=== PATIENT | female | born 1955 | race Asian ===

== ENCOUNTER → 2016-03-24 | Outpatient (CLI) | payer OTHER ==
--- NOTE | 2016-03-24 16:32 | DX ---
LEFT RIBS, 2 views History: New lump at sternoclavicular joint with the left clavicle Comparison: AP chest July 16, 2015 Findings: Alignment of the manubrial clavicular joints appear symmetric on the PA view. The medial le ft clavicular head and clavicle appear normal . Lungs clear. Heart normal. No mediastinal or hilar ad enopathy. Impression: No source for lump identified. Consider MRI or CT with IV contrast of the sternoclavicula r joints for further evaluation of the patient's lump.
== END ==
LOC: BMCIMAGING 14:13
PROVIDERS: ATTEND Internal Medicine
DX: R22.9 Localized swelling, mass and lump, unspecified (principal)

== ENCOUNTER → 2016-04-17 | Outpatient (CLI) | payer OTHER | LOC: FIMAGING 14:45 | PROVIDERS: ATTEND Internal Medicine | DX: R22.2 Localized swelling, mass and lump, trunk (principal) ==

== ENCOUNTER → 2016-09-10 | Outpatient (CLI) | payer OTHER | LOC: FIMAGING 13:39 | PROVIDERS: ATTEND Pain Medicine Interventional Pain Medicine | DX: M50.221 Other cervical disc displacement at C4-C5 level (principal); M51.86 Other intervertebral disc disorders, lumbar region ==

== ENCOUNTER 2017-05-01 15:49 | Emergency (ER) | payer OTHER ==
--- NOTE | 2017-05-01 16:47 | EDPHY ---
H & P Stated Complaint: epigastric/back pain, MORTON Time Seen by Provider: 05/01/17 16:10 - Personal History Current Tetanus/Diphtheria Vaccine: Unsure Current Tetanus Diphtheria and Acellular Pertussis (TDAP): Unsure - Medical/Surgical History Hx Asthma: No Hx Chronic Respiratory Disease: No Hx Diabetes: No Hx Cardiac Disease: No Hx Renal Disease: No Hx Cirrhosis: No Hx Alcoholism: No Hx HIV/AIDS: No Hx Splenectomy or Spleen Trauma: No Other PMH: MIGRAINES, CHRONIC NECK PAIN, RECEIVES BOTOX FOR CHRONIC PAIN. CHRONIC NAUSEA herniated disc. osteoporosis - Social History Smoking Status: Never smoked Constitutional: Initial Vital Signs Temperature (C) 36.5 C 05/01/17 15:58 Heart Rate 63 05/01/17 15:58 Respiratory Rate 16 05/01/17 15:58 Blood Pressure 135/63 H 05/01/17 15:58 O2 Sat (%) 100 05/01/17 15:58 O2 Delivery Mode Room Air Allergies/Adverse Reactions: dexamethasone [From Decadron] Allergy (Mild, Verified 05/01/17 15:57) dexamethasone sod phosphate [From Decadron] Allergy (Mild, Verified 05/01/17 15: 57) Home Medications: Medication Instructions Recorded Cyanocobalamin [Vitamin B12 (OTC)] 1,000 mcg PO DAILY 08/17/14 Levothyroxine [Synthroid 100 mcg 100 mcg PO DAILY 08/17/14 (RX)] Magnesium 135 mg PO HS 08/17/14 Progesterone 100mg Caps 1 cap PO HS 08/17/14 Medical Decision Making - Diagnostics Imaging Results: Imaging Impressions Abdomen Ultrasound 05/01/17 16:49 Impression: Contracted gallbladder. However, no ultrasound evidence for acute cholecystitis. Findings and recommendations discussed with Fabien Estrada MD at 1746 hour, 05/01/2017. Final report concurs with initial preliminary interpretation. Imaging: Discussed imaging studies w/ call or contact centre team leader Radiologist ED Course/Re-evaluation: CHIEF COMPLAINT: Abdominal pain HISTORY OF PRESENT ILLNESS: The patient is a 61 y/o female with a history of hypothyroidism and chronic pain complaining of abdominal pain and back pain for the last 7 days. She initially noticed epigastric abdominal pain quickly followed by "deep" in the same plane with her abdominal pain. No aggravating or alleviating factors. She now has associated nausea, but no diarrhea, fever, vomiting, cough, dyspnea. Pain feels similar to prior 6-year episode of abdominal pain due to pancreatic foreign body, which was removed via laparotomy and identified as a needle. They never determined where this needle came from, but thought it could have been an acupuncture needle. REVIEW OF SYSTEMS: A 10 point review of systems was performed and is negative with the exception of the elements mentioned in the history of present illness. PHYSICAL EXAM: HR, BP, O2 Sat, RR. Temp noted General Appearance: Alert, well hydrated, appropriate, and non-toxic appearing. Head: Atraumatic without scalp tenderness or obvious injury Eyes: Pupils equal, round, reactive to light and accommodation, EOMI, no trauma , no injection. Nose: Atraumatic, no rhinorrhea, clear. Throat: Mucus membranes moist. Neck: Supple, non-tender, no lymphadenopathy. Respiratory: No retractions, no distress, no wheezes, and no accessory muscle use. Lungs are clear to auscultation bilaterally. Cardiovascular: Regular rate and rhythm, no murmurs, rubs, or gallops. Good capillary refill all extremities. Gastrointestinal: Abdomen is soft, epigastric and RUQ tenderness, non-distended , no masses, no rebound, no guarding, no peritoneal signs. Musculoskeletal: Normal active ROM of all extremities, atraumatic. Neurological: Alert, appropriate, and interactive. The patient has non-focal cranial nerves, motor, sensory, and cerebellar exam. Skin: No rashes, good turgor, no nodules on palpation. PAST MEDICAL HISTORY: Hypothyroidism, migraines, chronic pain PAST SURGICAL HISTORY: Exploratory laparotomy of pancreas to remove foreign body (needle) in July [address] Means SOCIAL HISTORY: Nonsmoker. . Employed. Prior medical records reviewed including ED visit 12/03/15 for migraine. DIAGNOSTICS/PROCEDURES/CRITICAL CARE TIME: RUQ US: contracted gallbladder, no evidence of cholecystitis DIFFERENTIAL DIAGNOSIS: The differential diagnosis for the patient's abdominal pain included but was not limited to ovarian cyst, pelvic inflammatory disease, ovarian torsion, urinary tract infection, ectopic , cholecystitis, and appendicitis. MEDICAL DECISION MAKING: This is a 61 y/o female who presents with a one-week history of upper abdominal pain, back pain, and nausea. She is generally [id number] with mild RUQ and epigastric tenderness. She is afebrile and hemodynamically stable. Location of pain could indicate gallbladder etiology. Plan for IV, labs, gallbladder US, and symptomatic management. 4mg IV Zofran and 1L IV NS ordered. Reassessed patient and discussed work up. Her nausea has been well-controlled with Zofran and she is feeling improved. We have poor IV access and the patient does not want us to continue attempting to get a better line that would allow for contrast during a CT. Given that her labs are completely normal, including normal lipase and LFTs, and her abdomen is benign on reassessment, I do not suspect acute surgical abdomen and do not think she requires a CT at this time. She agrees and would like to go home. Discussed strict return precautions and follow up instructions, which she agrees to. - Data Points Laboratory Results: Laboratory Results 05/01/17 17:15 05/01/17 17:15 18 05/01/17 17:15 17:15 WBC 4.10 10^3/uL 10^3/uL (3.80-9.50) RBC 4.52 10^6/uL 10^6/uL (4.18-5.33) Hgb 13.8 g/dL g/dL (12.6-16.3) Hct 41.3 % % (38.0-47.0) MCV 91.4 fL fL (81.5-99.8) MCH 30.5 pg pg (27.9-34.1) MCHC 33.4 g/dL g/dL (32.4-36.7) RDW 12.3 % % (11.5-15.2) Plt Count 228 10^3/uL 10^3/uL (150-400) MPV 11.1 fL fL (8.7-11.7) Neut % (Auto) 61.9 % % (39.3-74.2) Lymph % (Auto) 27.1 % % (15.0-45.0) [place] % (Auto) 7.1 % % (4.5-13.0) Eos % (Auto) 2.4 % % (0.6-7.6) Baso % (Auto) 0.5 % % (0.3-1.7) Nucleat RBC Rel Count 0.0 % % (0.0-0.2) Absolute Neuts (auto) 2.54 10^3/uL 10^3/uL (1.70-6.50) Absolute Lymphs (auto) 1.11 10^3/uL 10^3/uL (1.00-3.00) Absolute Monos (auto) 0.29 10^3/uL L 10^3/uL (0.30-0.80) Absolute Eos (auto) 0.10 10^3/uL 10^3/uL (0.03-0.40) Absolute Basos (auto) 0.02 10^3/uL 10^3/uL (0.02-0.10) Absolute Nucleated RBC 0.00 10^3/uL 10^3/uL (0-0.01) Immature Gran % 1.0 % % (0.0-1.1) Immature Gran # 0.04 10^3/uL 10^3/uL (0.00-0.10) Sodium 140 mEq/L mEq/L (135-145) Potassium 3.8 mEq/L mEq/L (3.5-5.2) Chloride 105 mEq/L mEq/L (97-110) Carbon Dioxide 22 mEq/l mEq/l (22-31) Anion Gap 13 mEq/L mEq/L (8-16) BUN 16 mg/dL mg/dL (7-23) Creatinine 0.8 mg/dL mg/dL (0.6-1.0) Estimated GFR > 60 Glucose 83 mg/dL mg/dL (70-100) Calcium 9.6 mg/dL mg/dL (8.5-10.4) Total Bilirubin 0.3 mg/dL mg/dL (0.1-1.4) Conjugated Bilirubin 0.2 mg/dL mg/dL (0.0-0.5) Unconjugated Bilirubin 0.1 mg/dL mg/dL (0.0-1.1) AST 26 IU/L IU/L (14-46) ALT 31 IU/L IU/L (9-52) Alkaline Phosphatase 114 IU/L IU/L (38-126) Total Protein 7.3 g/dL g/dL (6.3-8.2) Albumin 4.5 g/dL g/dL (3.5-5.0) Lipase 123 IU/L IU/L (23-300) Medications Given: Discontinued Medications Ondansetron HCl (Zofran Odt) 4 mg PO EDNOW ONE Stop: 05/01/17 17:50 Last Admin: 05/01/17 17:53 Dose: Not Given Departure - Departure Disposition: Home, Routine, Self-Care Clinical Impression: Abdominal pain Qualifiers: Abdominal location: upper abdomen, unspecified Qualified Code(s): R10.10 - Upper abdominal pain, unspecified Condition: Good Instructions: Acute Abdominal Pain (ED) Additional Instructions: Sometimes we are unable to diagnose an obvious cause of abdominal pain in the Emergency Department. Because more serious conditions can be difficult to diagnose early in the course of their presentation, we ask that you return to the Emergency Department in 8-12 hours for a recheck if you are still having pain. This is necessary to exclude the development of a more serious condition such as appendicitis or other intra-abdominal emergency. In the event your pain markedly increases before that time or you develop intractable vomiting or fever return to the Emergency Department immediately. Otherwise, please follow up with your primary care provider on Wednesday. Referrals: Jenny Downey MD [Primary Care Provider] - As per Instructions Report Scribed for: Fabien Estrada Report Scribed by: Elysia Gambino Date of Report: 05/01/17 Time of Report: 18:11
[2017-05-01] MEDS ORDERED: ONDANSETRON 4 MG/2 ML VIAL IVP ONE (16:49)
[2017-05-01] MEDS ORDERED: NS 1,000 ML IV ONE ×2 (16:49)
[2017-05-01] MEDS ORDERED: ONDANSETRON DISINTEGRATING 4 MG TAB PO ONE (17:49)
[2017-05-01 17:51] LABS: PLATELET COUNT 228 10^3/uL (150-400)
[2017-05-01 18:26] VITALS: BP 95/63; PULSE 67; RESP 18; TEMP 98.2; O2SAT 98
== END 2017-05-01 18:26 | disposition home or self-care (01) ==
DX: R10.10 Upper abdominal pain, unspecified (principal)
CPT/HCPCS: J2405

== ENCOUNTER 2017-10-31 05:50 | Emergency (ER) | payer OTHER ==
[2017-10-31] MEDS ORDERED: NS 1,000 ML IV ONE (05:59)
[2017-10-31] MEDS ORDERED: METOCLOPRAMIDE 10 MG/2 ML VIAL IVP ONE (06:22)
[2017-10-31] MEDS ORDERED: KETOROLAC 30 MG/1 ML SDV IVP ONE (06:22)
--- NOTE | 2017-10-31 06:23 | EDPHY ---
H & P Stated Complaint: migraines Source: Patient - Personal History Current Tetanus Diphtheria and Acellular Pertussis (TDAP): Unsure - Medical/Surgical History Hx Asthma: No Hx Chronic Respiratory Disease: No Hx Diabetes: No Hx Cardiac Disease: No Hx Renal Disease: No Hx Cirrhosis: No Hx Alcoholism: No Hx HIV/AIDS: No Hx Splenectomy or Spleen Trauma: No Other PMH: MIGRAINES, CHRONIC NECK PAIN, RECEIVES BOTOX FOR CHRONIC PAIN. CHRONIC NAUSEA herniated disc. osteoporosis - Social History Smoking Status: Never smoked Time Seen by Provider: 10/31/17 06:23 HPI/ROS: HPI CHIEF COMPLAINT: "I am having a migraine headache" HISTORY OF PRESENT ILLNESS: Patient is 62-year-old female, longstanding history of migraine headaches, followed by a headache specialist, she states is last evening she had 2 glasses of wine, at 4:00 a.m. She woke up with a gradual onset headache. Not thunderclap. Not worst headache of her life. She took migraine medications of which she cannot remember, also took Tylenol. It did not help with her pain. She presents emergency room with a posterior throbbing headache. Patient reports that this is always were her migraine is. It stems from bad neck pain. She states she has significant arthritis in her neck which gives her migraine headaches. She denies any chest pain, shortness of breath, denies fever. Denies stiff neck. Main complaint posterior headache. 12/08. Throbbing in nature. Very similar to previous migraines. Typically gets a migraine cocktail with improvement. Past Medical History: Migraine headaches, neck arthritis Past Surgical History: No recent surgery Social History: Occasional alcohol use. Denies illicit drugs. Denies tobacco. Family History: Noncontributory ROS REVIEW OF SYSTEMS: 10 Systems were reviewed and negative with the exception of the elements mentioned in the history of present illness. Exam Constitutional nontoxic-appearing, triage nursing summary reviewed, vital signs reviewed, awake/alert. Eyes normal conjunctivae and sclera, EOMI, PERRLA. HENT normal inspection, atraumatic, moist mucus membranes, no epistaxis, neck supple/ no meningismus, no raccoon eyes. Respiratory clear to auscultation bilaterally, normal breath sounds, no respiratory distress, no wheezing. Cardiovascular rate normal, regular rhythm, no murmur, no edema, distal pulses normal. Gastrointestinal soft, non-tender, no rebound, no guarding, normal bowel sounds, no distension, no pulsatile mass. Genitourinary no CVA tenderness. Musculoskeletal no midline vertebral tenderness, full range of motion, no calf swelling, no tenderness of extremities, no meningismus, good pulses, neurovascularly intact. Skin pink, warm, & dry, no rash, skin atraumatic. Neurologic patient is normal neurological exam, awake, alert and oriented x 3, AAOx3, moves all 4 extremities equally, motor intact, sensory intact, CN II-XII intact, normal cerebellar, normal vision, normal speech. Psychiatric normal mood/affect. Heme/Lymph/Immune no lymphadenopathy. Differential Diagnosis: Includes but is not limited to in a particular order, migraine headache, tension headache, cluster headache, intracranial bleed Medical Decision Making: Plan for this patient IV establishment, IV fluid bolus , migraine cocktail, CT scan head without contrast for headache, reason for CT scan and bad posterior headache. Re-evaluation: CT scan head without contrast negative for acute bleed. Called to me by Dr. Bernard 0700: Signed over to Dr. Estrada. Re-evaluate patient. (Robert Michael) Constitutional: Initial Vital Signs Temperature (C) 36.7 C 10/31/17 06:02 Heart Rate 74 10/31/17 06:02 Respiratory Rate 18 10/31/17 06:02 Blood Pressure 148/91 H 10/31/17 06:02 O2 Sat (%) 97 10/31/17 06:02 O2 Delivery Mode Room Air Allergies/Adverse Reactions: dexamethasone [From Decadron] Allergy (Mild, Verified 10/31/17 06:01) dexamethasone sod phosphate [From Decadron] Allergy (Mild, Verified 10/31/17 06: 01) Home Medications: Medication Instructions Recorded Levothyroxine [Synthroid 100 mcg 100 mcg PO DAILY 08/17/14 (RX)] Magnesium 135 mg PO HS 08/17/14 Progesterone 100mg Caps 1 cap PO HS 08/17/14 Medical Decision Making ED Course/Re-evaluation: 0800: Patient's migraine has improved. Normal neuro exam. Patient will be discharged home with standard migraine care and follow up instructions. Return precautions discussed. She is comfortable with this plan. (Fabien Estrada) - Data Points Laboratory Results: Laboratory Results 10/31/17 06:10 10/31/17 06:10 10/31/17 10/31/17 06:10 06:10 WBC 4.50 10^3/uL 10^3/uL (3.80-9.50) RBC 4.35 10^6/uL 10^6/uL (4.18-5.33) Hgb 13.1 g/dL g/dL (12.6-16.3) Hct 39.3 % % (38.0-47.0) MCV 90.3 fL fL (81.5-99.8) MCH 30.1 pg pg (27.9-34.1) MCHC 33.3 g/dL g/dL (32.4-36.7) RDW 12.5 % % (11.5-15.2) Plt Count 215 10^3/uL 10^3/uL (150-400) MPV 10.7 fL fL (8.7-11.7) Neut % (Auto) 64.0 % % (39.3-74.2) Lymph % (Auto) 25.8 % % (15.0-45.0) [place] % (Auto) 7.8 % % (4.5-13.0) Eos % (Auto) 2.0 % % (0.6-7.6) Baso % (Auto) 0.2 % L % (0.3-1.7) Nucleat RBC Rel Count 0.0 % % (0.0-0.2) Absolute Neuts (auto) 2.88 10^3/uL 10^3/uL (1.70-6.50) Absolute Lymphs (auto) 1.16 10^3/uL 10^3/uL (1.00-3.00) Absolute Monos (auto) 0.35 10^3/uL 10^3/uL (0.30-0.80) Absolute Eos (auto) 0.09 10^3/uL 10^3/uL (0.03-0.40) Absolute Basos (auto) 0.01 10^3/uL L 10^3/uL (0.02-0.10) Absolute Nucleated RBC 0.00 10^3/uL 10^3/uL (0-0.01) Immature Gran % 0.2 % % (0.0-1.1) Immature Gran # 0.01 10^3/uL 10^3/uL (0.00-0.10) Sodium 138 mEq/L mEq/L (135-145) Potassium 4.2 mEq/L mEq/L (3.3-5.0) Chloride 104 mEq/L mEq/L (97-110) Carbon Dioxide 26 mEq/l mEq/l (22-31) Anion Gap 8 mEq/L mEq/L (8-16) BUN 17 mg/dL mg/dL (7-23) Creatinine 0.7 mg/dL mg/dL (0.6-1.0) Estimated GFR > 60 Glucose 86 mg/dL mg/dL (70-100) Calcium 9.1 mg/dL mg/dL (8.5-10.4) Medications Given: Discontinued Medications Diphenhydramine HCl (Benadryl Injection) 50 mg IVP EDNOW ONE Stop: 10/31/17 06:23 Last Admin: 10/31/17 06:26 Dose: 50 mg Hydromorphone HCl (Dilaudid) 0.5 mg IVP EDNOW ONE Stop: 10/31/17 06:25 Last Admin: 10/31/17 06:31 Dose: 0.5 mg Sodium Chloride (Ns) 1,000 mls @ 0 mls/hr IV EDNOW ONE; Wide Open PRN Reason: Protocol Stop: 10/31/17 06:00 Last Admin: 10/31/17 06:13 Dose: 1,000 mls Ketorolac Tromethamine (Toradol) 30 mg IVP EDNOW ONE Stop: 10/31/17 06:23 Last Admin: 10/31/17 06:25 Dose: 30 mg Metoclopramide HCl (Reglan Injection) 10 mg IVP EDNOW ONE Stop: 10/31/17 06:23 Last Admin: 10/31/17 06:25 Dose: 10 mg Departure - Departure Disposition: Home, Routine, Self-Care Clinical Impression: Migraine headache Qualifiers: Migraine type: other Status migrainosus presence: without status migrainosus Intractability: intractable Qualified Code(s): G43.819 - Other migraine, intractable, without status migrainosus Condition: Good Instructions: Migraine Headache (ED), Acute Headache (ED) Additional Instructions: 1. Rest today. 2. Stay well-hydrated. 3. Return emergency room if there is worsening symptoms questions or concerns. 4. Please follow up with your doctor. Referrals: Jagdish Dorantes MD [Medical Doctor] - As per Instructions
[2017-10-31] MEDS ORDERED: HYDROmorphONE/DILAUDID 2 MG/ML INJ IVP ONE (06:24)
[2017-10-31 06:25] LABS: PLATELET COUNT 215 10^3/uL (150-400)
[2017-10-31] MEDS ORDERED: ONDANSETRON DISINTEGRATING 4 MG TAB PO ONE (08:16)
[2017-10-31 08:28] VITALS: BP 111/75
== END 2017-10-31 08:27 | disposition home or self-care (01) ==
DX: G43.819 Other migraine, intractable, without status migrainosus (principal); M54.2 Cervicalgia; G89.29 Other chronic pain; E86.9 Volume depletion, unspecified
CPT/HCPCS: 96374; J1170; J1200; J1885; J2765

== ENCOUNTER 2018-01-01 17:45 | Emergency (ER) | payer OTHER ==
[2018-01-01] MEDS ORDERED: KETOROLAC 30 MG/1 ML SDV IVP ONE (18:33)
[2018-01-01] MEDS ORDERED: NS 1,000 ML IV ONE (18:33)
[2018-01-01] MEDS ORDERED: METOCLOPRAMIDE 10 MG/2 ML VIAL IVP ONE (18:33)
--- NOTE | 2018-01-01 19:10 | EDPHY ---
H & P Stated Complaint: migraine morton/shingles Time Seen by Provider: 01/01/18 18:30 HPI/ROS: CHIEF COMPLAINT: Migraine HISTORY OF PRESENT ILLNESS: The patient is a 62y/o female with a history of migraines who arrives with her complaining of a migraine that began yesterday. She has a headache, nausea, and photophobia that feel exactly the same as prior migraines. She used Excedrin without relief. Her migraines are occurring almost weekly. She denies any symptoms today that are different from past episodes. No weakness, paresthesias, fever, or other complaints. She is here for symptom relief. REVIEW OF SYSTEMS: A comprehensive 10 system review of systems is otherwise negative aside from elements mentioned in the history of present illness and medical decision making. Past medical history: Migraines, chronic neck pain w/botox injections, chronic nausea, herniated disc, osteoporosis. Past surgical history: noncontributory Family history: Noncontributory Social history: at bedside. Lives in [place]. Adult Physical: General Appearance: Alert, no acute distress. Eyes: Pupils equal and round, no conjunctival injection, no discharge. ENT, Mouth: Mucous membranes are moist, no oropharyngeal erythema or edema. Neck: No lymphadenopathy, supple.No meningeal signs. Respiratory: Lungs are clear to auscultation; no wheezes, rales, or rhonchi. Cardiovascular: Regular rate and rhythm; no murmur, rub, or gallop. Gastrointestinal: Abdomen is soft and non tender, no masses or organomegaly. Skin: Warm and dry, small tiny scabs on left flank without vesicles, tenderness , erythema, or tenderness, normal color. Back: Nontender to palpation over the thoracolumbar spine. Neurological: Alert and oriented. Facial expressions symmetric, tongue midline , EOMI. Moving all four extremities easily and equally. Bilateral biceps, sod cutter , plantar and dorsiflexion 5/5. DTRs 2+ bilat knees. Sensation intact to LT all 4 extremities. Psychiatric: Normal affect. - Personal History Current Tetanus Diphtheria and Acellular Pertussis (TDAP): Unsure - Medical/Surgical History Hx Asthma: No Hx Chronic Respiratory Disease: No Hx Diabetes: No Hx Cardiac Disease: No Hx Renal Disease: No Hx Cirrhosis: No Hx Alcoholism: No Hx HIV/AIDS: No Hx Splenectomy or Spleen Trauma: No Other PMH: MIGRAINES, CHRONIC NECK PAIN, RECEIVES BOTOX FOR CHRONIC PAIN. CHRONIC NAUSEA herniated disc. osteoporosis - Social History Smoking Status: Never smoked Constitutional: Initial Vital Signs Temperature (C) 36.4 C 01/01/18 17:54 Heart Rate 55 L 01/01/18 17:54 Respiratory Rate 18 01/01/18 17:54 Blood Pressure 147/84 H 01/01/18 17:54 O2 Sat (%) 100 01/01/18 17:54 O2 Delivery Mode Room Air Allergies/Adverse Reactions: dexamethasone [From Decadron] Allergy (Mild, Verified 01/01/18 17:53) dexamethasone sod phosphate [From Decadron] Allergy (Mild, Verified 01/01/18 17: 53) Home Medications: Medication Instructions Recorded Levothyroxine [Synthroid 100 mcg 100 mcg PO DAILY 08/17/14 (RX)] Magnesium 135 mg PO HS 08/17/14 Progesterone 100mg Caps 1 cap PO HS 08/17/14 Ondansetron Odt [Zofran Odt 4 mg 4 mg PO Q4 PRN #10 tab 10/31/17 (RX)] Migraine Med 01/01/18 Medical Decision Making ED Course/Re-evaluation: Plan for IV and symptomatic management. 1L IV NS, 10mg IV Benadryl, 10mg IV Reglan, and 15mg IV Toradol ordered for migraine. Patient is feeling much better on reassessment and is ready for discharge home. Standard care and follow up instructions discussed. Return precautions given. Differential Diagnosis: DDX including but not limited to migraine, tension MORTON, cluster MORTON, temporal arteritis, ICH/SAH. - Data Points Medications Given: Discontinued Medications Diphenhydramine HCl (Benadryl Injection) 25 mg IVP EDNOW ONE Stop: 01/01/18 18:34 Last Admin: 01/01/18 18:48 Dose: 25 mg Sodium Chloride (Ns) 1,000 mls @ 0 mls/hr IV ONCE ONE; Wide Open PRN Reason: Protocol Stop: 01/01/18 18:34 Last Admin: 01/01/18 18:47 Dose: 1,000 mls Ketorolac Tromethamine (Toradol) 15 mg IVP EDNOW ONE Stop: 01/01/18 18:34 Last Admin: 01/01/18 18:48 Dose: 15 mg Metoclopramide HCl (Reglan Injection) 10 mg IVP EDNOW ONE Stop: 01/01/18 18:34 Last Admin: 01/01/18 18:48 Dose: 10 mg Departure - Departure Disposition: Home, Routine, Self-Care Clinical Impression: Migraine Qualifiers: Migraine type: without aura Status migrainosus presence: without status migrainosus Intractability: not intractable Qualified Code(s): G43.009 - Migraine without aura, not intractable, without status migrainosus Condition: Good Instructions: Migraine Headache (ED) Additional Instructions: Follow up with your primary care provider as needed for unimproved symptoms over the next few days. Return for worsening of condition. Referrals: Jenny Downey MD [Primary Care Provider] - As per Instructions Report Scribed for: Toya Prakash Report Scribed by: Elysia Gambino Date of Report: 01/01/18 Time of Report: 19:13 Physician Review and Approval Statement: 01/04/18 12:56 Portions of this chart were entered by a medical artist. I have reviewed the chart and agree with the documentation.
[2018-01-01 19:54] VITALS: BP 132/79
== END 2018-01-01 19:52 | disposition home or self-care (01) ==
DX: G43.909 Migraine, unspecified, not intractable, without status migrainosus (principal); E86.9 Volume depletion, unspecified
CPT/HCPCS: 96374; J1200; J1885; J2765

== ENCOUNTER → 2018-07-02 | Outpatient (CLI) | payer OTHER | LOC: FIMAGING 08:31 | PROVIDERS: ATTEND Internal Medicine | DX: R94.02 Abnormal brain scan (principal); Q67.0 Congenital facial asymmetry | CPT/HCPCS: 70551-PN ==